=== PATIENT | male | born 1995 | race Caucasian/White ===

== ENCOUNTER 2017-09-09 06:58 | Day surgery (SDC) | payer BC ==
[~2017-09-09] VITALS: Ht 200.7 cm; Wt 147.0 kg
[~2017-09-09 06:58] MED LIST: PROAIR HFA8.5 GM INH
[2017-09-09 07:53] VITALS: BP 124/56; Ht 200.7 cm; Wt 147.0 kg
[2017-09-09] MEDS ORDERED: HYDROCODON-ACE1 EAC7 PO (09:26)
== END 2017-09-09 12:40 | disposition home or self-care (01) ==
LOC: D.OPS 06:58 → D.PAN 09:00 → D.OPS 09:30
DX: K82.8 Other specified diseases of gallbladder (principal); Z87.891 Personal history of nicotine dependence; J45.909 Unspecified asthma, uncomplicated; Z01.812 Encounter for preprocedural laboratory examination

== ENCOUNTER 2018-07-10 15:42 | Emergency (ER) | payer BC ==
[~2018-07-10] VITALS: Ht 200.7 cm; Wt 145.5 kg
[~2018-07-10 15:42] MED LIST changes: +HYDROCODON-ACE1 EAC7 PO
[2018-07-10 15:44] VITALS: Ht 200.7 cm; Wt 145.5 kg
[2018-07-10 16:33] LABS: APPEARANCE CLEAR (CLEAR); COLOR YELLOW (YELLOW); NITRITE NEGATIVE (NEGATIVE); PROTEIN TRACE mg/dL (NEGATIVE); SPECIFIC GRAVITY 1.025 (1.005-1.020)
[2018-07-10 16:34] LABS: BILIRUBIN NEGATIVE (NEGATIVE); GLUCOSE NEGATIVE (NEGATIVE); KETONE NEGATIVE (NEGATIVE); UROBILINOGEN NORMAL (NORMAL); WHITE CELLS - URINE NSEEN /hpf (0-5)
[2018-07-10 17:37] LABS: BASOPHILS 0.3 % (0-2); EOSINOPHILS 2.1 % (0-7); HEMATOCRIT 43.6 % (42.0-54.0); HEMOGLOBIN 15.1 g/dL (13.5-17.5); IMMATURE GRANULOCYTES 0.2 % (0-5); LYMPHOCYTES 19.7 % (15-50); MCH 30.1 pg (26.0-34.0); MCHC 34.6 g/dL (31.0-37.0); MONOCYTES 10.6 % (2-11); NEUTROPHILS 67.1 % (40-80); PLATELET COUNT 279 10x3/uL (130-400); RBC 5.01 10x6/uL (4.20-6.10); RDW 12.7 % (11.5-14.5); WBC 8.7 10x3/uL (4.8-10.8)
[2018-07-10 17:57] LABS: ALBUMIN 3.9 g/dL (3.4-5.0); ALKALINE PHOSPHATASE 54 U/L (46-116); ALT (SGPT) 32 U/L (10-68); AMYLASE - SERUM 35 U/L (25-115); BILIRUBIN - TOTAL 0.41 mg/dL (0.2-1.3); CALC OSMOLALITY 280 mosm/kg (275-300); CARBON DIOXIDE 28.1 mmol/L (21.0-32.0); CHLORIDE - SERUM 104 mmol/L (98-107); CREATININE - SERUM 1.1 mg/dL (0.6-1.3); GLUCOSE 80 mg/dL (74-106); LIPASE 110 U/L (73-393); POTASSIUM - SERUM 4.2 mmol/L (3.5-5.1); PROTEIN - SERUM 7.6 g/dL (6.4-8.2); SODIUM 141 mmol/L (136-145); UREA NITROGEN 15 mg/dL (7-18); eGFR NON AFRICAN AMERICAN 87 mL/min (90-120)
[2018-07-10] MEDS ORDERED: ZOFRAN ODT4 MG/UDTAB PO (18:15)
[2018-07-10] MEDS ORDERED: FLOMAX0.4 MG PO (18:15)
[2018-07-10] MEDS ORDERED: NORCO 10-325 TA1 TAB PO (18:15)
[2018-07-10 18:53] VITALS: BP 139/69
== END 2018-07-10 18:53 | disposition home or self-care (01) ==
LOC: D.ER 15:42
PROVIDERS: Family Medicine
DX: N20.1 Calculus of ureter (principal); N23 Unspecified renal colic